=== PATIENT | male | born 1980 | race Two or more races ===

== ENCOUNTER 2017-03-31 18:19 | Emergency (ER) | payer MEDICAID ==
[~2017-03-31] VITALS: Ht 162.6 cm; Wt 68.0 kg
[2017-03-31 23:50] VITALS: BP 127/70
[2017-04-01] MEDS ORDERED: TETANUS-DIPTH-ACEL PERTUSSIS 0.5ML SYRG IM ONE (00:15)
[2017-04-01] MEDS ORDERED: BACITRACIN TOP OINT 1 UD PKG TOP ONE (01:15)
== END 2017-04-01 02:04 | disposition home or self-care (01) ==
LOC: ER 18:28
DX: S61.011A Laceration without foreign body of right thumb without damage to nail, initial encounter (principal); W45.8XXA Other foreign body or object entering through skin, initial encounter; Y93.89 Activity, other specified; Y99.8 Other external cause status; Y92.89 Other specified places as the place of occurrence of the external cause
CPT/HCPCS: 12002; 73140; 90471; 90715

== ENCOUNTER 2018-09-27 05:24 | Emergency (ER) | payer MEDICAID ==
[~2018-09-27] VITALS: Ht 162.6 cm; Wt 74.8 kg
[2018-09-27] MEDS ORDERED: IBUPROFEN 800 MG TAB PO ONE (07:15)
[2018-09-27] MEDS ORDERED: HYDROcodone-ACET 5/325MG TAB PO ONE (08:15)
[2018-09-27 08:47] VITALS: BP 141/98
== END 2018-09-27 08:52 | disposition home or self-care (01) ==
LOC: EDBD 05:24 → ER 05:27
DX: M25.512 Pain in left shoulder (principal); M54.5 Low back pain; R42 Dizziness and giddiness; M79.18 Myalgia, other site; V43.52XA Car driver injured in collision with other type car in traffic accident, initial encounter; Y93.89 Activity, other specified; Y92.488 Other paved roadways as the place of occurrence of the external cause; Y99.8 Other external cause status
CPT/HCPCS: 70450; 71250; 72125; 73030; 74176

== ENCOUNTER 2025-10-17 17:01 | Emergency (ER) | payer MEDICAID ==
[~2025-10-17] VITALS: Ht 160 cm; Wt 77.7 kg
--- NOTE | 2025-10-17 18:12 | ED.PDOC ---
Eye-HPI HPI Comments This is a 45 year old male presenting to the ED with chief complaint of right eye injury. 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 Patient relays that he now has a foreign body sensation in the right eye with associated pain. He has not tried anything for his symptoms at home. He states nothing makes the symptoms better or worse. Patient denies any vision loss, headache, dizziness, or further injury. Chief Complaint: Eye Problem Time Seen by MD: 18:10 Primary Care Provider: N/A Reviewed Notes: Nurses Notes, Medications, Allergies Allergies: Coded Allergies: NO KNOWN ALLERGIES (Unverified , 04/01/17) Information Source: Patient Mode of Arrival: Ambulatory Timing: Hours Duration: Since onset Prehospital treatment: None Quality: Pain, FB sensation Eye Location: Right Cornea: Foreign Body Onset: FB Exposure Eye Context Recent: High speed machinery use History of: None Past Medical History PAST MEDICAL HISTORY: Denies Surgical History: Denies all surgeries Family History Family History: Reviewed,noncontributory to illness Social History Smoker: Non-Smoker Alcohol: Denies ETOH Use Drugs: Denies Drug Use Lives In: Home Constitutional: denies: chills, diaphoresis, fatigue, fever, malaise, sweats, weakness, others EENTM: reports: blurred vision, eye pain; denies: double vision, ear bleeding, ear discharge, ear drainage, ear pain, ear ringing, eye redness, hearing loss, mouth pain, mouth swelling, nasal discharge, nose bleeding, nose congestion, nose pain, photophobia, tearing, throat pain, throat swelling, voice changes, others Respiratory: denies: cough, hemoptysis, orthopnea, SOB at rest, shortness of breath, SOB with excertion, stridor, wheezing, others Cardiovascular: denies: chest pain, dizzy spells, diaphoresis, Dyspnea on exertion, edema, irregular heart beat, left arm pain, lightheadedness, palpitati ons, PND, syncope, others Gastrointestinal: denies: abdomen distended, abdominal pain, blood streaked bowels, constipated, diarrhea, dysphagia, difficulty swallowing, hematemesis, melena, nausea, poor appetite, poor fluid intake, rectal bleeding, rectal pain, vomiting, others Genitourinary: denies: burning, dysuria, flank pain, frequency, hematuria, incontinence, penile discharge, penile sore, pain, testicle pain, testicle swelling, urgency, others Neurological: denies: dizziness, fainting, headache, left sided numbness, left sided weakness, numbness, paresthesia, pre-existing deficit, right sided numbness, right sided weakness, seizure, speech problems, tingling, tremors, weakness, others Musculoskeletal: denies: back pain, gout, joint pain, joint swelling, muscle pain, muscle stiffness, neck pain, others Integumetry: denies: bruises, change in color, change in hair/nails, dryness, laceration, lesions, lumps, rash, wounds, others Allergic/Immunocompromised: denies: Difficulty Healing, Frequent Infections, Hives, Itching, others Hematologic/Lymphatic: denies: anemia, blood clots, easy bleeding, easy bruising, swollen glands, others Endocrine: denies: excessive hunger, excessive sweating, excessive thirst, excessive urination, flushing, intolerance to cold, intolerance to heat, unexplained weight gain, unexplained weight loss, others Psychiatric: denies: anxiety, bipolar disorder, depression, hopeless, panic disorder, schizophrenia, sleepless, suicidal, others All Other Systems: Reviewed and Negative Physical Exam General Appearance: No Apparent Distress, Normal HEENT: Pharynx Normal, TMs Normal, Other (Metallic foreign body noted to 12 o' clock position of right eye) Neck: Full Range of Motion, Non-Tender, Normal, Normal Inspection Respiratory: Chest Non-Tender, Lungs Clear, No Accessory Muscle Use, No Respiratory Distress, Normal Breath Sounds Cardiovascular: No Edema, No JVD, No Murmur, No Gallop, Normal Peripheral Pulses, Regular Rate/Rhythm Breast Exam: Deferred Gastrointestinal: No Organomegaly, Non Tender, No Pulsatile Mass, Normal Bowel Sounds, Soft Genitalia: Deferred Pelvic: Deferred Rectal: Deferred Extremities: No calf tenderness, Normal capillary refill, Normal inspection, Normal range of motion, Non-tender, No pedal edema Musculoskeletal : Apperance: Normal Neurologic: Alert, 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 Was a procedure done?: Yes Sedation Sedation?: No Foreign Body Removal Foreign body in: Eye Anesthetic: Other (Tetracaine and Fluorescein) Prep: Prep, Saline, Irrigation Procedure: Identified, Removed Informed consent obtained: Yes Risks/benefits/alt described: Yes Notes Small metal shaving removed from right eye successfully. EENT DIFF Eye: Corneal Abrasion, Foreign Body-Conjunctiva, Foreign Body-Corneal X-Ray, Labs, Meds, VS Vital Signs Date Time Temp Pulse Resp B/P (MAP) Pulse Ox O2 Delivery O2 Flow Rate FiO2 10/17/25 18:38 97.9 79 18 125/80 (95) 97 97.9 10/17/25 18:38 79 18 96 Room Air 10/17/25 17:03 98.0 82 18 130/87 96 98.0 X-Ray, Labs, Meds, VS Comment Patient presenting with foreign body sensation visualized foreign body on exam. No evidence of globe rupture and otherwise well-appearing. Small metallic foreign body imbedded in cornea. Tetracaine and fluorescein Wood's lamp exam and foreign body removal. Re-evaluation Social determinant surveillance affecting care: Social determinants of health that will affect the patient's care: Poor health literacy (additional time provided an explanation) Poor access to outpatient care/followup (provided outpatient resources) Time of 1ST Reevaluation: 19:08 Reevaluation 1ST: Unchanged Patient Education/Counseling: Diagnosis, Treatment Family Education/Counseling: Diagnosis, Treatment SEPSIS Sepsis Screen Date sepsis recognized/suspect: Oct 17, 2025 Time Sepsis recognized/suspect: 1706 Recent Procedure: No On Antibiotic Therapy: No Respiratory Rate >20: No Heart Rate >90: No Temp<36 C (96.8 F) or >38.3 C: No SBP <90 or MAP <65 mmHG: No New Acute Mental Status Change: No Is the patient on CPAP, BIPAP,: No Vital Signs Date Time Temp Pulse Resp B/P (MAP) Pulse Ox O2 Delivery O2 Flow Rate FiO2 10/17/25 18:38 97.9 79 18 125/80 (95) 97 97.9 10/17/25 18:38 79 18 96 Room Air 10/17/25 17:03 98.0 82 18 130/87 96 98.0 Departure 1 Departure Time of Disposition: 19:03 (On reassessment, foreign body removed with swollen insulin new. Discussed with patient need for outpatient follow-up with Ophthalmology. Will discharge with topical antibiotics. Given strict return precaution.) Impression: Primary Impression: Eye foreign body Additional Impression: Corneal abrasion Disposition: HOME / SELF CARE / HOMELESS Condition: Stable e-Prescriptions Erythromycin (Erythromycin) 5 Mg/Gm Oin 1 MG OP BID for 5 Days, #10 OIN Prov: YRN EAST MD 10/17/25 Discharged With: Self Critical Care Note Critical Care Time?: No Stability Stability form required: No Heart Score Heart Score: Heart Score Response (Comments) Value History N/A 0 EKG N/A 0 Age N/A 0 Risk Factors N/A 0 Troponin N/A 0 Total 0 I personally scribed for YRN EAST MD ([email or web address]) on 10/17/25 at 18:12. Electronically submitted by Silvestre Simmons ([email or web address]). I personally scribed for YRN EAST MD ([email or web address]) on 10/17/25 at 18:46. Electronically submitted by Silvestre Simmons ([email or web address]). YRN EAST MD Oct 17, 2025 18:12
[2025-10-17] MEDS: TETRACAINE HCL 0.5% OPTH(EYE) SOLN 4ML EACHEYE ONE (18:15)
[2025-10-17] MEDS: FLUORESCEIN SOD OPTH TEST STRIP EACHEYE ONE (18:15)
[2025-10-17 18:38] VITALS: BP 125/80; PULSE 79; RESP 18; TEMP 97.9; O2SAT 96
[2025-10-17] MEDS ORDERED: ERY05OO OP (19:04)
== END 2025-10-17 19:27 | disposition home or self-care (01) ==
LOC: ER 17:01
DX: T15.91XA Foreign body on external eye, part unspecified, right eye, initial encounter (principal); S05.01XA Injury of conjunctiva and corneal abrasion without foreign body, right eye, initial encounter; W44.9XXA Unspecified foreign body entering into or through a natural orifice, initial encounter; Y93.89 Activity, other specified; Y92.89 Other specified places as the place of occurrence of the external cause; Y99.8 Other external cause status